=== PATIENT | male | born 1985 | race Caucasian/White ===

== ENCOUNTER 2020-02-26 01:57 | Emergency (ER) | payer OTHER ==
[~2020-02-26] VITALS: Ht 188 cm; Wt 108.9 kg
[2020-02-26] MEDS ORDERED: ROBAXIN 750 MG750 MG PO (02:36)
[2020-02-26] MEDS ORDERED: LYRICA 75 MG CA75 MG PO (02:36)
[2020-02-26] MEDS ORDERED: PROZAC20 M1 PO (02:36)
[2020-02-26] MEDS ORDERED: OXYCONTIN10 M1 PO (02:37)
[2020-02-26] MEDS ORDERED: ENDOCET 7.5-321 EACH PO (03:14)
[2020-02-26 03:24] VITALS: BP 144/105
== END 2020-02-26 03:25 | disposition home or self-care (01) ==
LOC: M.ERS 01:57
DX: R07.81 Pleurodynia (principal); Z76.0 Encounter for issue of repeat prescription

== ENCOUNTER 2020-03-06 19:30 | Emergency (ER) | payer OTHER ==
[~2020-03-06] VITALS: Ht 188 cm; Wt 108.9 kg
[~2020-03-06 19:30] MED LIST: ENDOCET 7.5-321 EACH PO; LYRICA 75 MG CA75 MG PO; OXYCONTIN10 M1 PO; PROZAC20 M1 PO; ROBAXIN 750 MG750 MG PO
[2020-03-06 19:56] LABS: URINE BILIRUBIN NEGATIVE (Negative); URINE BLOOD NEGATIVE (Negative); URINE CLARITY CLOUDY; URINE COLOR YELLOW; URINE GLUCOSE-RANDOM NEGATIVE (Negative); URINE KETONES TRACE (Negative); URINE LEUKOCYTES-REFLEX NEGATIVE (Negative); URINE NITRITE-REFLEX NEGATIVE (Negative); URINE PROTEIN NEGATIVE (Negative); URINE SPECIFIC GRAVITY 1.025 (1.005-1.030); URINE UROBILINOGEN 0.2 E.U./dl (0.2-1.0)
[2020-03-06 20:02] LABS: BACTERIA-REFLEX 1-9 Few /HPF (None Seen); CASTS None Seen /LPF (None Seen); MUCUS 0-3 Light strn/LPF (None Seen); SQUAMOUS 0-3 Few /LPF (0-3); URINE RBC 0-2 Rare /HPF (0-2); URINE WBC-REFLEX 0-5 Rare /HPF (0-5)
[2020-03-06 20:03] LABS: AMORPHOUS PHOSPHATES Many /LPF (None Seen)
[2020-03-06 20:05] LABS: ABSOLUTE BASOPHILS 0.1 thou/uL (0.0-0.2); ABSOLUTE EOSINOPHILS 0.3 thou/uL (0.0-0.7); ABSOLUTE MONOCYTES 0.6 thou/uL (0.0-1.2); ABSOLUTE NEUTROPHILS 3.8 thou/uL (1.6-8.1); HEMATOCRIT 41.8 % (42.0-52.0); HEMOGLOBIN 14.6 gm/dL (14.0-18.0); LYMPHOCYTES 28.7 %; MCH 31.2 pg (26.0-34.0); MCHC 34.9 g/dL (28.0-37.0); MCV 89.3 fL (80.0-100.0); MONOCYTES 9.1 %; NUCLEATED RBCS 0 /100WBC; PLATELET COUNT* 237 thou/uL (150-400); POLYS 56.2 %; RBC 4.67 mil/uL (4.50-6.00); RDW-CV 14.2 % (10.5-14.5); WBC 6.8 thou/uL (4.0-11.0)
[2020-03-06 20:07] LABS: AMP/METHAMP Negative (Negative); BARBITURATES Negative (Negative); BENZODIAZEPINES Negative (Negative); COCAINE Negative (Negative); METHADONE Negative (Negative); OPIATES Negative (Negative); PCP Negative (Negative); THC Negative (Negative)
[2020-03-06 20:10] LABS: CALCIUM 10.5 mg/dL (8.5-10.1); CREATININE 0.8 mg/dL (0.6-1.3); POTASSIUM 3.3 mmol/L (3.5-5.1)
[2020-03-06 20:15] LABS: ALBUMIN 4.4 g/dL (3.4-5.0); TOTAL BILIRUBIN 0.2 mg/dL (<0.1-1.0); TOTAL PROTEIN 8.5 g/dL (6.4-8.2)
[2020-03-06 20:31] LABS: ALCOHOL 242 mg/dL (<10); SALICYLATE < 2.8 mg/dL (2.8-20.0)
[2020-03-06 20:32] LABS: ACETAMINOPHEN < 2 ug/mL (10-30)
[2020-03-07 17:17] VITALS: BP 116/69
== END 2020-03-07 17:19 ==
LOC: M.ERS 19:30
PROVIDERS: Emergency Medicine
DX: F10.920 Alcohol use, unspecified with intoxication, uncomplicated (principal); Z20.828 Contact with and (suspected) exposure to other viral communicable diseases; R45.851 Suicidal ideations; F41.9 Anxiety disorder, unspecified; R07.81 Pleurodynia; Z79.899 Other long term (current) drug therapy; Y90.9 Presence of alcohol in blood, level not specified